=== PATIENT | female | born 1950 | race Caucasian/White ===

== ENCOUNTER 2018-05-02 08:26 | Inpatient (IN) | payer MEDICARE, OTHER ==
[~2018-05-02] VITALS: Ht 167.6 cm; Wt 65.8 kg
[~2018-05-02 08:26] MED LIST: ADVAIR HFA115 MCG/21 INH; CEFPODOXIME PR200 M1 PO; CIPRO500 MG PO; COMBIVENT INH; FLAGYL500 MG PO; FLONASE 0.05%50 MCG NASAL; LIPITOR 20 MG T20 M1 PO; PAXIL30 MG PO; PREDNISONE 10 M10 MG PO; PROAIR HFA8.5 GM INH; PROTONIX40 M1 PO; VENTOLIN HFA 1818 GM INH
[2018-05-02 08:37] VITALS: BP 154/70
[2018-05-02 08:55] LABS: HEMATOCRIT 47.7 % (37.0-47.0); MCH 31.1 pg (26.0-34.0); MCHC 33.4 g/dL (28.0-37.0); MCV 93.2 fL (80.0-100.0); MPV 9.1 fl. (7.2-11.1); NUCLEATED RBCS 0 /100WBC; PLATELET COUNT* 181 thou/uL (150-400); RBC 5.13 mil/uL (4.20-5.00); RDW-CV 12.9 % (10.5-14.5); WBC 6.9 thou/uL (4.0-11.0)
[2018-05-02 09:09] LABS: ANION GAP 4 mmol/L (7-16); APTT 28.4 Seconds (25.0-31.3); BUN 11 mg/dL (7-18); CALCIUM 8.6 mg/dL (8.5-10.1); CHLORIDE 102 mmol/L (98-107); CO2 37 mmol/L (21-32); CREATININE 0.8 mg/dL (0.6-1.3); GLUCOSE 95 mg/dL (70-99); INR 1.1; POTASSIUM 3.7 mmol/L (3.5-5.1); PROTIME 10.8 Seconds (9.20-11.50); SODIUM 143 mmol/L (136-145)
[2018-05-02 09:19] LABS: ALBUMIN 3.7 g/dL (3.4-5.0); ALKALINE PHOSPHATASE 82 U/L (46-116); LIPASE 176 U/L (73-393); MAGNESIUM 1.9 mg/dL (1.8-2.4); NT-PRO BRAIN NAT PEPTIDE 48 pg/mL (<300); SGOT 24 U/L (15-37); SGPT 24 U/L (30-65); TOTAL BILIRUBIN 0.5 mg/dL (<0.1-1.0); TROPONIN-I LEVEL <0.06 ng/mL (<0.06)
[2018-05-02 09:34] LABS: ABSOLUTE EOSINOPHILS 0.8 thou/uL (0.0-0.7); ABSOLUTE LYMPHOCYTES 2.6 thou/uL (0.8-5.3); ABSOLUTE MONOCYTES 0.3 thou/uL (0.0-1.2); ABSOLUTE NEUTROPHILS 3.2 thou/uL (1.6-8.1); ATYPICAL LYMPHS 1 %; PLATELET ESTIMATE ADEQUATE
[2018-05-02 11:55] VITALS: BP 130/72
[2018-05-02 12:00] VITALS: BP 134/83
--- NOTE | 2018-05-02 13:15 | NUR ---
RECEIVED REPORT FROM MAGALIS IN ED AND ASSUMED CARE OF PT @ 1200.PT IS A/O X4,VSS,TRACING SR WITH PVC ON THE MONITOR.ASSESSMENT CHARTED.IV PATENT AND SALINE LOCKED.PT IS CALM AND COOPERATIVE WITH NO C/O PAIN AT TIME OF ASSESSMENT.PT IS UP AD MADHAVI IN ROOM.PT LEFT RESTING IN BED WITH CALL LIGHT WITHIN REACH.WILL CONTINUE TO MONITOR.
[2018-05-02 16:03] VITALS: BP 131/75
--- NOTE | 2018-05-02 18:07 | NUR ---
VSS.CARDIAC MONITORING IN PLACE WITH NO CHANGES.PT REMAINS ON 5L O2 NC.NO C/O PAIN.IV PATENT AND SALINE LOCKED.IV ANTIBIOTICS GIVEN.UA SENT.SPUTUM SAMPLE SENT.HOURLY ROUNDING COMPLETED FOR PT SAFETY.CALL LIGHT WITHIN REACH.WILL CONTINUE TO MONITOR FOR DURATION OF SHIFT.
[2018-05-02 19:00] VITALS: BP 121/65
[2018-05-03] VITALS: BP 137/80
--- NOTE | 2018-05-03 01:20 | NUR ---
INITIAL ASSESSMENT COMPLETE. PT DOES REPORT PRODUCTIVE COUGH. PT REMAINS ON 5LPM. PT UP ADLIB WITH STEADY GAIT. VSS. PT TRACING SR ON MONITOR. REFER TO CHARTING. CLWR
[2018-05-03 04:00] VITALS: BP 134/80
--- NOTE | 2018-05-03 06:54 | NUR ---
PT SLEPT ALL T/O THIS SHIFT. NO NEW COMPLAINTS OTR CONCERNS AT THIS TIME. CLWR.
[2018-05-03 07:50] VITALS: BP 114/74
--- NOTE | 2018-05-03 10:27 | NUR ---
RECEIVED REPORT FROM CONCEPCIÓN AND ASSUMED CARE OF PT @ 5760.PT IS A/O X4,VSS,TRACING SR ON THE MONITOR.ASSESSMENT CHARTED.PT REMAINS ON 5L O2 NC.IV PATENT AND SLAINE LOCKED.IV ANTIBIOTICS GIVEN.PT IS CALM AND COOPERAITVE WITH NO C/O PAIN.PT LEFT RESTING IN BED WITH CALL LIGHT WITHIN REACH.WILL CONTINUE TO MONITOR.
[2018-05-03 11:42] VITALS: BP 121/65
--- NOTE | 2018-05-03 12:58 | EKG ---
[place] [address] ELECTROCARDIOGRAM REPORT Name: CHOCO MAGDALENO Room: [address] ADM IN .R.#: [id number] Admission: 05/02/18 Attend Phys: Nataly Valles Discharge: Date of : 52 Report #: [id number] THIS REPORT FOR: //name// [facility] ED Test Date: 2018-05-02 Test Time: 08:54:10 Pat Name: CHOCO MAGDALENO Department: Room: [facility] Gender: F Lead Programmer Analyst: AG : 1950 Requested By: Bartolo Rowland Order Number: [id number] MD: Jamir Sol Measurements Intervals [place] Rate: 69 P: 46 SC: 166 QRS: 56 QRSD: 76 T: 55 QT: 388 QTc: 416 Interpretive Statements Sinus rhythm Compared to ECG 02/24/2017 15:10:41 T-wave abnormality no longer present Electronically Signed On 05-03-2018 12:58:05 VICE CHAIRMAN by Jamir Sol [email or web address] <ELECTRONICALLY SIGNED> By: Jamir Sol MD, [facility] 05/03/18 1258 0854 0854 Jamir Sol MD, [facility] /EPI
[2018-05-03 16:06] VITALS: BP 125/71
--- NOTE | 2018-05-03 17:20 | NUR ---
VSS.CARDIAC MONITORING IN PLACE WITH NO CHANGES.PT REMAINS ON 5L O2 NC.PT PROGRESSING TOWARDS GOALS.NO C/O PAIN.IV PATENT AND SALINE LOCKED.IV ANTIBIOTICS GIVEN.PT INFORMED OF PLAN OF CARE AND COMMUNICATES UNDERSTANDING.HOURLY ROUNDING COMPELTED FOR PT SAFETY.CALL LIGHT WITHIN REACH.WILL CONTINUE TO MONITOR FOR DURATION OF SHIFT.
[2018-05-03 20:00] VITALS: BP 122/76
[2018-05-04] VITALS: BP 110/64
[2018-05-04 04:00] VITALS: BP 118/59
[2018-05-04 04:49] LABS: HEMATOCRIT 41.8 % (37.0-47.0); MCH 30.1 pg (26.0-34.0); MCHC 32.6 g/dL (28.0-37.0); MCV 92.5 fL (80.0-100.0); MPV 9.3 fl. (7.2-11.1); RBC 4.52 mil/uL (4.20-5.00); WBC 12.3 thou/uL (4.0-11.0)
[2018-05-04 05:08] LABS: CALCIUM 8.9 mg/dL (8.5-10.1); CREATININE 0.7 mg/dL (0.6-1.3); MAGNESIUM 2.1 mg/dL (1.8-2.4); POTASSIUM 4.3 mmol/L (3.5-5.1)
[2018-05-04 05:23] LABS: HEMOGLOBIN 13.6 gm/dL (12.0-15.0)
--- NOTE | 2018-05-04 05:58 | NUR ---
ASSUMED RT CARE @ 1930. A+O X 4. SR ON THE MONITOR. CHLORASCEPTIC LOZENGES ORDERED AND GIVEN FOR SORE THROAT EFFECTIVE. PT RESTED THROUGH NIGHT WITH NO OTHER DISCOMFORTS NOTED OR REPORTED. CALL LIGHT IN REACH. HOURLY ROUNDING FOR SAFETY.
[2018-05-04 08:15] VITALS: BP 141/66
--- NOTE | 2018-05-04 11:20 | NUR ---
MET WITH PT TO DISCUSS HOME SITUATION/DC PLANNING. PT LIVES ALONE, HAS SUPPORTIVE FRIENDS AND NEIGHBORS. SISTER LIVES IN [place]. PT USES HOME O2 AND HAS PORTABLE CONCENTRATOR ALSO THRU [facility]. SHE HASN'T HAD HH. GAVE INFO AND EDUCATION ON DPOA, PT WILL CONTACT CM IF WANTS TO COMPLETE. PT DENIES ANY DC NEEDS, STATES SHE HAS 'LOTS' OF SUPPORT. CM TO FOLLOW
[2018-05-04 12:00] VITALS: BP 136/73
[2018-05-04 16:00] VITALS: BP 127/69
[2018-05-04 19:00] VITALS: BP 136/76
--- NOTE | 2018-05-04 19:02 | NUR ---
ASSUMED PT CARE AT 0730, FULL ASSESMENT DONE CHARTED. PT A/O X4, DENIES PAIN. PT UP AD MADHAVI. WHEEZY, NON PRODUCTIVE COUGH. ON SAT 92% ON 4L. PT USES CALL LIGHT FOR NEEDS. WILL CONTINUE WITH PLAN OF CARE.
--- NOTE | 2018-05-04 21:35 | NUR ---
ASSUMED CARE OF PT AT 1900. PT DENIES PAIN, SOA,N/V/D. PT TRACING SR ON MONITOR. PT DENIES ANY FURTHER NEEDS AT THIS TIME. HOURLY ROUNDS FOR PT SAFETY. CLWR.
[2018-05-05] VITALS: BP 116/67
[2018-05-05 04:00] VITALS: BP 134/74
[2018-05-05 05:26] LABS: CREATININE 0.7 mg/dL (0.6-1.3); MAGNESIUM 2.3 mg/dL (1.8-2.4)
--- NOTE | 2018-05-05 05:28 | NUR ---
PT SLEPT WELL T/O THIS NIGHT. NO NEW COMPLAINTS OR CONCERNS. CLWR.
[2018-05-05 08:00] VITALS: BP 126/66
[2018-05-05] MEDS ORDERED: BENZONATATE100 MG PO (08:43)
[2018-05-05] MEDS ORDERED: WELLBUTRIN 75 M75 M1 PO (08:43)
[2018-05-05] MEDS ORDERED: CEFDINIR300 MG PO (08:43)
[2018-05-05] MEDS ORDERED: SINGULAIR 10 MG10 M1 PO (08:43)
[2018-05-05] MEDS ORDERED: PREDNISONE 10 M10 M1 PO (08:43)
[2018-05-05] MEDS ORDERED: AZITHROMYCIN 2250 MG PO (08:43)
[2018-05-05] MEDS ORDERED: MUCINEX600 MG PO (08:43)
[2018-05-05 11:39] VITALS: BP 126/66
--- NOTE | 2018-05-05 14:41 | NUR ---
ASSUMED CARE OF PT ASSESSED AND DOCUMENTED. PT D/C'D TO HOME. EDUCATION GIVEN RE FOLLOW-UPS, MEDICATIONS, AND DRS ORDERS. SCRIPTS GIVEN. IV AND CARDIAC MONITER D/C'D. ALL BELONGINGS PACKED UP AND LEFT WITH PT ACCOMPANIED BY STAFF AND FRIEND.
== END 2018-05-05 14:51 | disposition home or self-care (01) | DRG 193 ==
LOC: M.ERS 08:26 → M.2W 09:13 → M.TBA-ER 09:13 → M.2W 12:02
PROVIDERS: Family Medicine; Internal Medicine; ADMIT Internal Medicine
DX: J15.9 Unspecified bacterial pneumonia (principal); J96.21 Acute and chronic respiratory failure with hypoxia; J44.1 Chronic obstructive pulmonary disease with (acute) exacerbation; J44.0 Chronic obstructive pulmonary disease with (acute) lower respiratory infection; R65.10 Systemic inflammatory response syndrome (SIRS) of non-infectious origin without acute organ dysfunction; F17.210 Nicotine dependence, cigarettes, uncomplicated; F32.9 Major depressive disorder, single episode, unspecified; Z99.81 Dependence on supplemental oxygen; Z82.49 Family history of ischemic heart disease and other diseases of the circulatory system; Z84.1 Family history of disorders of kidney and ureter

== ENCOUNTER → 2018-12-02 | Day surgery (SDC) | payer MEDICARE, OTHER ==
[~2018-12-02] MED LIST changes: +ACCUNEB SO1.25 MG/1 INH; +ADVAIR 250-501 EACH INH; +AZITHROMYCIN 2250 MG PO; +BENZONATATE100 MG PO; +CEFDINIR300 MG PO; +COLACE100 MG PO; -COMBIVENT INH; +COMBIVENT RESPIM4 GM INH; +MUCINEX600 MG PO; +PREDNISONE 10 M10 M1 PO; -PROAIR HFA8.5 GM INH; +SINGULAIR 10 MG10 M1 PO; +WELLBUTRIN 75 M75 M1 PO
[2018-12-02 09:56] LABS: HEMATOCRIT 46.4 % (37.0-47.0); HEMOGLOBIN 15.4 gm/dL (12.0-15.0); MCH 30.6 pg (26.0-34.0); MCHC 33.2 g/dL (28.0-37.0); MCV 92.1 fL (80.0-100.0); MPV 8.6 fl. (7.2-11.1); RBC 5.04 mil/uL (4.20-5.00); WBC 6.9 thou/uL (4.0-11.0)
[2018-12-02 10:06] LABS: CALCIUM 9.2 mg/dL (8.5-10.1); CREATININE 0.7 mg/dL (0.6-1.3)
--- NOTE | 2018-12-02 17:20 | EKG ---
[place] [address] ELECTROCARDIOGRAM REPORT Name: CHOCO MAGDALENO Room: [facility]#: [id number] Admission: 12/02/18 Attend Phys: Jeff Quezada MD Discharge: Date of : 52 Report #: [id number] THIS REPORT FOR: //name// [facility] Test Date: 2018-12-02 Test Time: 09:56:59 Pat Name: CHOCO MAGDALENO Department: Room: Gender: F Steam Cleaner: : 1950 Requested By: Jeff Quezada Order Number: [id number] Reading MD: Malachi Conway Measurements Intervals [place] Rate: 72 P: 70 AL: 174 QRS: 21 QRSD: 72 T: 57 QT: 410 QTc: 449 Interpretive Statements Sinus rhythm Anterior infarct, old possible Compared to ECG 05/02/2018 08:54:10 Myocardial infarct finding now present Electronically Signed On 12-02-2018 17:19:50 CDT by Malachi Conway [email or web address] <ELECTRONICALLY SIGNED> By: Malachi Conway MD, [facility] 12/02/18 1719 0956 0956 Malachi Conway MD, FAC /EPI
== END | disposition home or self-care (01) ==
LOC: M.SUR 09:32
PROVIDERS: Internal Medicine Gastroenterology
DX: R13.10 Dysphagia, unspecified (principal); K44.9 Diaphragmatic hernia without obstruction or gangrene; F32.9 Major depressive disorder, single episode, unspecified; Z79.899 Other long term (current) drug therapy; Z98.890 Other specified postprocedural states; Z87.19 Personal history of other diseases of the digestive system

== ENCOUNTER → 2020-09-01 | Day surgery (SDC) | payer MEDICARE, OTHER ==
[~2020-09-01] MED LIST changes: +AUGMENTIN 875-1 EACH PO; +BUPROPION HCL150 MG PO; +CLARITIN-D 121 EAC1 PO; +METRONIDAZOLE500 M4 PO; +ROXICODONE5 MG PO
--- NOTE | ~2020-09-01 | PROC ---
[facility] [address] [place] [address] PROCEDURE REPORT Name: CHOCO MAGDALENO Room: [facility]#: [id number] Admission: 09/01/20 Attend Phys: Tong Dickens DO Discharge: Date of : 52 Report #: [id number] THIS REPORT FOR: cc: Katie Villalta Linda J. DO [facility],Medical Records Staff ~ For GI report, please see the Provation report in Perceptive 7 content. By: 1100Medical Records Staff ALEJANDRO /YOVANI
[2020-09-01 10:01] LABS: HEMATOCRIT 46.9 % (37.0-47.0); HEMOGLOBIN 15.5 gm/dL (12.0-15.0); MCV 90.8 fL (80.0-100.0); MPV 8.1 fl. (7.2-11.1); RBC 5.17 mil/uL (4.20-5.00); RDW-CV 13.2 % (10.5-14.5); WBC 6.8 thou/uL (4.0-11.0)
[2020-09-01 10:12] LABS: CALCIUM 8.8 mg/dL (8.5-10.1); CREATININE 0.8 mg/dL (0.6-1.3); POTASSIUM 3.4 mmol/L (3.5-5.1)
--- NOTE | 2020-09-01 11:21 | EKG ---
[place] [address] ELECTROCARDIOGRAM REPORT Name: BISHOPCHOCO R Room: [facility]#: [id number] Admission: 09/01/20 Attend Phys: Tong Dickens, Discharge: Date of : 52 Date of Service: 09/01/20 0935 Report #: [id number] THIS REPORT FOR: //name// [facility] Test Date: 2020-09-01 Test Time: 09:35:25 Pat Name: CHOCO MAGDALENO Department: Room: Gender: F Roll Inspector: : 1950 Requested By: Tong Dickens Order Number: [id number] Yolande MD: Scott Phelps Measurements Intervals [place] Rate: 76 P: 71 DC: 174 QRS: 38 QRSD: 80 T: 38 QT: 402 QTc: 453 Interpretive Statements Sinus rhythm poor r wave progression Compared to ECG 12/02/2018 09:56:59 no change Electronically Signed On 09-01-2020 11:21:07 CDT by Scott Phelps [email or web address] <ELECTRONICALLY SIGNED> By: Scott Phelps MD, [facility] 09/01/20 1121 0935 0935 Scott Phelps MD, [facility] /EPI
--- NOTE | 2020-09-05 17:06 | PATH ---
[facility] [address] [place] [address] PATHOLOGY RPT PROCEDURE Name: CHOCO MAGDALENO Room: [facility]#: [id number] Admission: 09/01/20 Date of : 52 Discharge: Report #: [id number] Path Case #: [id number] [facility] Accession Number: [id number] . 01 Material submitted: . PART A: colon - PROXIMAL TRANSVERSE POLYP HOT SNARE. Modifiers: proximal, transverse PART B: colon - DISTAL TRANSVERSE POLYP HOT SNARE. Modifiers: distal, transverse PART C: sigmoid colon - SIGMOID COLON POLYP-HOT SNARE . 01 Clinical history: . EGD AND COLONOSCOPY PER HISTORY COLON POLYPS, DYSPHAGIA . 02 Diagnosis: A. Proximal transverse polyp (hot snare): - Tubular adenoma, negative for high-grade dysplasia. . B. Distal transverse polyp (hot snare): - Hyperplastic polyp. . C. Sigmoid colon polyp (hot snare): - Hyperplastic polyp. (ANGELA:lowell; 09/05/2020) QMS 09/05/2020 1235 Local . 02 Electronically signed: . Donovan Smith MD, Pathologist NPI- [id number] . 01 Gross description: . A. Received in formalin labeled "Choco Magdaleno, proximal transverse polyp" is a fragment of casanova-brown soft tissue measuring 0.8 x 0.7 x 0.7 cm. The margin is inked and the specimen is bisected and submitted entirely in A1. . B. Received in formalin labeled "Choco Magdaleno, distal transverse polyp" is a fragment of casanova-brown soft tissue measuring 0.3 x 0.3 x 0.2 cm. The margin is inked and the specimen is submitted entirely in B1. . C. Received in formalin labeled "Choco Magdaleno, sigmoid colon polyp" is a fragment of casanova-brown soft tissue measuring 0.3 x 0.3 x 0.2 cm. The margin is inked and the specimen is submitted entirely in C1. ([facility] [place]; 09/03/2020) [facility] 09/03/2020 0941 Local . 02 Pathologist provided ICD-10: [place] [address] PATHOLOGY RPT PROCEDURE Name: CHOCO MAGDALENO Room: [facility]#: [id number] Admission: 09/01/20 Date of : 52 Discharge: Report #: [id number] Path Case #: [id number] D12.3, K63.5 . 02 CPT . [id number], [id number], [id number] Specimen Comment: A courtesy copy of this report has been sent to [phone] Specimen Comment: [phone] Specimen Comment: Report sent to / DR HAYNES Performed at: [address] [facility] [address], [place], [place] [id number] MD Parmjit Nelson MD Phone: [phone] Performed at: 02 [facility] [address], [place], [place] [id number] MD Donovan Smith MD Phone: [phone]
== END | disposition home or self-care (01) ==
LOC: M.SUR 08:04
PROVIDERS: ATTEND Internal Medicine Gastroenterology
DX: Z12.11 Encounter for screening for malignant neoplasm of colon (principal); Z86.010 Personal history of colon polyps; D12.3 Benign neoplasm of transverse colon; K57.30 Diverticulosis of large intestine without perforation or abscess without bleeding; K64.4 Residual hemorrhoidal skin tags; J44.9 Chronic obstructive pulmonary disease, unspecified; R13.14 Dysphagia, pharyngoesophageal phase; F17.210 Nicotine dependence, cigarettes, uncomplicated; Z98.890 Other specified postprocedural states; Z79.899 Other long term (current) drug therapy

== ENCOUNTER 2020-09-04 11:39 | Inpatient (IN) | payer MEDICARE, OTHER ==
[~2020-09-04] VITALS: Ht 167.6 cm; Wt 73.9 kg
--- NOTE | ~2020-09-04 | OP ---
[address] [address] OPERATIVE REPORT Name: CHOCO MAGDALENO Room: [address] IN M.R.#: [id number] Admission: 09/04/20 Attend Phys: Melba Corey MD Discharge: Date of : 52 Report #: [id number] THIS REPORT FOR: cc: Katie Villalta Linda J. DO Kramer, Adam P. DO ~ DICTATED BY: Chloé Gomez DO DATE OF SERVICE: 09/04/2020 Chloé Gomez DO, PGY3 dictating for Kieran Sanchez DO. PRIMARY CARE PHYSICIAN: Dr. Katie Villalta. PREOPERATIVE DIAGNOSIS: Acute appendicitis. POSTOPERATIVE DIAGNOSIS: Acute perforated appendicitis. PRIMARY SURGEON: Kieran Sanchez DO COLLECTION SYSTEMS CONSULTANT: Chloé Gomez DO, PGY3. PROCEDURE PERFORMED: Laparoscopic appendectomy. ANESTHESIA: General and local. ESTIMATED BLOOD LOSS: 20 mL. SPECIMEN: Appendix. INDICATIONS FOR PROCEDURE: The patient is a pleasant 69-year-old female that presented to the Emergency Department with worsening right lower abdominal pain as well as lower back pain. She did have some associated nausea and vomiting. Her symptoms started yesterday and had gotten worse since that time. Of note, she did just have an EGD and colonoscopy on Friday with Dr. Dickens and he had removed some polyps from the transverse and sigmoid colon. She had a CT scan in the Emergency Department, which was consistent with acute appendicitis. She had a leukocytosis. It was recommended that she undergo laparoscopic appendectomy. The procedure, risks, benefits, possible complications to include bleeding, infection, injury to surrounding structures, need for additional surgery, need for open procedure, risks of anesthesia, and other risks of surgery were discussed with the patient in great detail. She voiced complete understanding and wished to proceed with surgery. DESCRIPTION OF PROCEDURE: Informed consent was obtained. [place] [address] OPERATIVE REPORT Name: MAGDALENOARACELISCHOCO Sunny Room: [address] IN [facility]#: [id number] Admission: 09/04/20 Attend Phys: Melba Corey MD Discharge: Date of : 52 Report #: [id number] to the operating room and placed supine on the operating room table. General endotracheal anesthesia was induced without difficulty. SCDs were placed on bilateral lower extremities. Preoperative antibiotics were given. The abdomen was prepped and draped in the standard sterile fashion. Timeout was performed to ensure correct patient and procedure. A vertical supraumbilical 3 cm incision was made using a #11 blade scalpel and the incision was carried down through the subcutaneous tissues using electrocautery. [place] were used to assist in the dissection further down to the level of the fascia. Fascia was scored with electrocautery. Fascia was grasped between 2 Kochers and elevated. Peritoneum was entered bluntly using a hemostat, 0 Vicryl stay sutures were placed on either side of the fascial opening in a hnlqnu-hb-hpxjm fashion. The 5 mm Ariane trocar was inserted and the abdomen was insufflated without difficulty. A sweep of the anterior abdominal contents was performed. There did appear to be some inflammatory purulent fluid in the right lower quadrant. The patient was placed in the Trendelenburg position. A suprapubic 5 mm trocar was inserted under direct visualization. A blunt grasper was then used to explore the right lower quadrant. The appendix was found coursing just lateral to the terminal ileum down into the pelvis. It did appear to be acutely inflamed. A 12 mm left lower quadrant trocar was inserted under direct visualization. The base of the appendix was identified and grasped and elevated, it appeared to be healthy. [place] dissector was used to dissect a window through the mesoappendix just at the base of the appendix. A 45 mm purple load on the Endo-MONA stapler was used to come across the base of the appendix. The Harmonic scalpel was then used to come across the mesoappendix. Once the appendix was freed from all of its attachments, it was placed within an EndoCatch bag. The right lower quadrant was then irrigated using the suction technical services assistant. Our staple line and the mesoappendix were reinspected, they appeared to be hemostatic. Right lower quadrant was again irrigated using the suction technical services assistant. The patient was flattened out. The suprapubic and left lower quadrant trocars were removed under direct visualization and the abdomen was desufflated without difficulty. The 5 mm Ariane was removed as well as the appendix within the EndoCatch bag. The previously placed stay sutures were grasped and elevated. The remainder of the fascia was reapproximated using 0 Vicryl suture in a caudao-di-xzrwv fashion. Previously placed stay sutures were tied down. The skin was closed using 4-0 Monocryl suture in a running subcuticular fashion. The 5 mm and 12 mm trocar sites were closed using 4-0 Monocryl suture in a simple interrupted and inverted fashion. Approximately 30 mL of 0.5% Marcaine were used for local anesthesia. Abdomen was cleansed and dried. Dermabond was applied to each incision. The patient tolerated the procedure very well. She was allowed to awaken in the operating room and was [place] [id number] OPERATIVE REPORT Name: CHOCO MAGDALENO Room: [address] IN .R.#: [id number] Admission: 09/04/20 Attend Phys: Melba Coery MD Discharge: Date of : 52 Report #: [id number] transferred to the PACU in stable condition with plans to return to the floor for ongoing IV antibiotics and continued care. By: 08 oJan Sanchez DO /celia
[~2020-09-04 11:39] MED LIST changes: -AUGMENTIN 875-1 EACH PO; -METRONIDAZOLE500 M4 PO; -ROXICODONE5 MG PO
[2020-09-04 11:55] VITALS: BP 155/86
[2020-09-04 13:57] LABS: ABSOLUTE BASOPHILS 0.1 thou/uL (0.0-0.2); ABSOLUTE LYMPHOCYTES 1.6 thou/uL (0.8-5.3); ABSOLUTE MONOCYTES 1.3 thou/uL (0.0-1.2); ABSOLUTE NEUTROPHILS 14.1 thou/uL (1.6-8.1); BASOPHILS 0.7 %; EOSINOPHILS 0.1 %; HEMATOCRIT 46.2 % (37.0-47.0); HEMOGLOBIN 15.3 gm/dL (12.0-15.0); LYMPHOCYTES 9.5 %; MCHC 33.1 g/dL (28.0-37.0); MCV 90.5 fL (80.0-100.0); MONOCYTES 7.4 %; MPV 8.1 fl. (7.2-11.1); NUCLEATED RBCS 0 /100WBC; PLATELET COUNT* 238 thou/uL (150-400); POLYS 82.3 %; RDW-CV 13.4 % (10.5-14.5); WBC 17.1 thou/uL (4.0-11.0)
[2020-09-04 14:06] LABS: CALCIUM 8.9 mg/dL (8.5-10.1); CREATININE 0.7 mg/dL (0.6-1.3); POTASSIUM 3.4 mmol/L (3.5-5.1)
[2020-09-04 14:18] LABS: ALBUMIN 3.9 g/dL (3.4-5.0); TOTAL BILIRUBIN 0.7 mg/dL (<0.1-1.0); TOTAL PROTEIN 7.3 g/dL (6.4-8.2)
[2020-09-04 15:19] LABS: URINE BILIRUBIN NEGATIVE (Negative); URINE BLOOD 1+ (Negative); URINE CLARITY CLEAR; URINE COLOR YELLOW; URINE GLUCOSE-RANDOM NEGATIVE (Negative); URINE KETONES 1+ (Negative); URINE LEUKOCYTES-REFLEX NEGATIVE (Negative); URINE NITRITE-REFLEX NEGATIVE (Negative); URINE PROTEIN NEGATIVE (Negative); URINE SPECIFIC GRAVITY 1.025 (1.005-1.030); URINE UROBILINOGEN 0.2 E.U./dl (0.2-1.0)
[2020-09-04 15:34] LABS: BACTERIA-REFLEX 1-9 Few /HPF (None Seen); CASTS None Seen /LPF (None Seen); CRYSTALS None Seen /LPF (None Seen); SQUAMOUS 0-3 Few /LPF (0-3); URINE RBC 0-2 Rare /HPF (0-2); URINE WBC-REFLEX 0-5 Rare /HPF (0-5)
[2020-09-04 18:13] VITALS: BP 157/73
[2020-09-04 21:12] VITALS: BP 130/72
[2020-09-05 00:16] VITALS: BP 124/73
[2020-09-05 04:36] VITALS: BP 110/62
[2020-09-05 05:16] LABS: HEMATOCRIT 42.4 % (37.0-47.0); HEMOGLOBIN 13.7 gm/dL (12.0-15.0); MCH 29.7 pg (26.0-34.0); MCHC 32.4 g/dL (28.0-37.0); MCV 91.5 fL (80.0-100.0); MPV 8.2 fl. (7.2-11.1); RBC 4.63 mil/uL (4.20-5.00); RDW-CV 13.1 % (10.5-14.5); WBC 22.5 thou/uL (4.0-11.0)
[2020-09-05 05:29] LABS: ALBUMIN 3.2 g/dL (3.4-5.0); CALCIUM 8.7 mg/dL (8.5-10.1); CREATININE 0.7 mg/dL (0.6-1.3); MAGNESIUM 1.9 mg/dL (1.8-2.4); POTASSIUM 3.7 mmol/L (3.5-5.1); TOTAL BILIRUBIN 0.6 mg/dL (<0.1-1.0); TOTAL PROTEIN 6.5 g/dL (6.4-8.2)
[2020-09-05 08:25] VITALS: BP 112/64
--- NOTE | 2020-09-05 08:39 | NUR ---
PATIENT BROUGHT TO UNIT AT APPROXIMATELY 2100 FROM PACU. REPORT GIVEN FROM PACU NURSE. VSS ON 4L 02 VIA NASAL CANNULA. ADMISSION ASSESSMENT CHARTED. PATIENTS HAS HAD NO C/O PAIN. LAP SITES TO ABDOMEN ARE WELL APPROXIMATED AND SUPERVISOR TOWER WITH NO DRAINAGE NOTED. PATIENT URINATING ADEQUATELY SINCE SURGERY. IV IN RIGHT AC-SL. IV ABT'S GIVEN WITHOUT ANY ADVERSE SIDE EFFECCTS NOTED. LUNG SOUND DIMINISHED. PATIENT HAS HISTORY OF BEING CURRENT SMOKER AND HISTORY OF COPD. PATIENT EDUCATED ON USING INCENTIVE SPIROMETER. PATIENT INSTRUCTED TO USE CALL LIGHT WHEN NEEDING ASSISTANCE. HOURLY ROUNDS MADE. WILL CONTINUE WITH PLAN OF CARE AND NURSING TO MONITOR.
--- NOTE | 2020-09-05 10:54 | NUR ---
Nutrition: Pt admitted with appendicitis, appy performed. Tolerating CLD, so advanced to regular diet. Wt hx: usual wt was 155#, then she lost wt to 146# in 2017, now wt is recorded as 163#. Albumin 3.2. H/o smoker, COPD. Hopeful for continued good po intake today, good HBV protein intake. Consider low nutrition risk.
[2020-09-05] MEDS ORDERED: METRONIDAZOLE500 M4 PO (11:36)
[2020-09-05] MEDS ORDERED: AUGMENTIN 875-1 EACH PO (11:36)
[2020-09-05 11:37] VITALS: BP 94/52
--- NOTE | 2020-09-05 15:07 | NUR ---
Pt is A&O. Resides at home alone. Independent. Pt [facility] Pt states that she has an [employer], sister will bring it in at discharge. No hx of HH or SNF. Pt states that [place] [facility] [place], [facility] and arrange [facility] up at dc. Anticipate dc in a few days.
--- NOTE | 2020-09-05 16:05 | NUR ---
[facility] Nurse Transition Navigator Bedside Note: Met with patients. She wants HH due to her comobidities and use of oxygen and heart issues. Patient to dc tomorrow and we called and made appt. with pcp, Dr. Katie Ayala at 9 am on September 14.
[2020-09-05 16:55] VITALS: BP 108/63
[2020-09-05 20:12] VITALS: BP 122/74
--- NOTE | 2020-09-05 20:57 | NUR ---
Pt remained A&O x4 for entire shift. Pt pleasant with staff. Pt complained of being "extremely uncomfortable" when asked if she was in pain. Pt given meds per JUL. Vital signs stable. Bed in low postion, call light within reach.
[2020-09-06 00:14] VITALS: BP 112/63
[2020-09-06 04:10] VITALS: BP 111/66
--- NOTE | 2020-09-06 04:33 | NUR ---
PATIENT HAS REMAINED ALERT AND ORIENTED X 4 THROUGHOUT THE SHIFT AND RSTING QUIETLY ON HOURLY ROUNDS. MEDICATED FOR ABDOMINAL PAIN X 3 TO GOOD EFFECT. PATIENT DENIES PASSING GAS. ADEQUTE VOIDS. UP WITH CGA. IV ANTIBIOTICS/MEDS PER ORDERS. VITAL SIGNS STABLE. CONTINUE TO MONITOR.
[2020-09-06 05:01] LABS: ABSOLUTE BASOPHILS 0.1 thou/uL (0.0-0.2); ABSOLUTE LYMPHOCYTES 2.1 thou/uL (0.8-5.3); ABSOLUTE NEUTROPHILS 9.2 thou/uL (1.6-8.1); BASOPHILS 0.5 %; EOSINOPHILS 0.2 %; HEMOGLOBIN 12.4 gm/dL (12.0-15.0); LYMPHOCYTES 17.2 %; MCHC 32.7 g/dL (28.0-37.0); MCV 91.8 fL (80.0-100.0); MONOCYTES 7.8 %; MPV 8.5 fl. (7.2-11.1); NUCLEATED RBCS 0 /100WBC; PLATELET COUNT* 173 thou/uL (150-400); POLYS 74.3 %; RBC 4.14 mil/uL (4.20-5.00); RDW-CV 13.7 % (10.5-14.5); WBC 12.4 thou/uL (4.0-11.0)
[2020-09-06 05:11] LABS: CALCIUM 8.9 mg/dL (8.5-10.1); CREATININE 0.6 mg/dL (0.6-1.3); POTASSIUM 3.3 mmol/L (3.5-5.1)
[2020-09-06 08:00] VITALS: BP 147/70
--- NOTE | 2020-09-06 13:52 | NUR ---
Continue to monitor pain control. No passing gas but belching. Possible dc to home tomorrow, no needs anticipated.
--- NOTE | 2020-09-06 14:58 | NUR ---
[facility] Nurse Cora. Navigator f/u note: Should dc tomorrow. Still wants HH.
[2020-09-06 16:00] VITALS: BP 133/72
--- NOTE | 2020-09-06 18:26 | NUR ---
PT RESTING IN BED THROUGHOUT SHIFT. PAIN CONTROLLED WITH PO AND IV MEDS. TOLERATING PO WELL. UP TO BR WITH STEADY GAIT
[2020-09-07] VITALS: BP 138/77
[2020-09-07 04:32] VITALS: BP 156/80
[2020-09-07 04:36] LABS: HEMATOCRIT 39.1 % (37.0-47.0); HEMOGLOBIN 12.8 gm/dL (12.0-15.0); MCHC 32.8 g/dL (28.0-37.0); MCV 91.5 fL (80.0-100.0); MPV 8.4 fl. (7.2-11.1); RBC 4.28 mil/uL (4.20-5.00); RDW-CV 13.4 % (10.5-14.5)
[2020-09-07 04:45] LABS: CALCIUM 9.1 mg/dL (8.5-10.1); CREATININE 0.5 mg/dL (0.6-1.3); POTASSIUM 3.3 mmol/L (3.5-5.1)
[2020-09-07 08:00] VITALS: BP 134/69
--- NOTE | 2020-09-07 09:19 | NUR ---
PATIENT HAS SLEPT THROUGHOUT MOST OF THE NIGHT. PATIENT 0XYGEN INCREASED TO 3L 02 D/T DECREASED OXYGEN SATURATION. VSS. PATIENT UP AD-MADHAVI AND STEADY. LAP SITES TO ABDOMEN ARMIN WITH DERMABOND. MEDICATIONS GIVEN ORDERED AND CHARTED. NEW IV INSERTED IN LEFT FOREARM-SL. IV ABT'S GIVEN ORDERED WITHOUT ANY ADVERSE SIDE EFFECTS NOTED. PATIENT INSTRUCTED TO USE CALL LIGHT WHEN NEEDING ASSISTANCE. HOURLY ROUNDS MADE. WILL CONTINUE WITH PLAN OF CARE AND NURSING TO MONITOR.
[2020-09-07] MEDS ORDERED: ROXICODONE5 MG PO (09:37)
[2020-09-07 16:02] VITALS: BP 143/78
--- NOTE | 2020-09-07 17:06 | PATH ---
[address] [address] PATHOLOGY RPT PROCEDURE Name: CHOCO MAGDALENO Room: [address] IN .R.#: [id number] Admission: 09/04/20 Date of : 52 Discharge: Report #: [id number] Path Case #: [id number] [facility] Accession Number: [id number] . 01 Material submitted: . appendix - APPENDIX . 01 Clinical history: . LAPAROSCOPIC APPENDECTOMY . 01 Frozen section diagnosis: . . /QLM . 02 Diagnosis: Appendix: - Acute gangrenous appendicitis, periappendicitis and serositis with evidence of perforation. . (ANGELA:mml; 09/07/2020) QLM 09/07/2020 1609 Local . 02 Electronically signed: . Donovan Smith MD, Pathologist NPI- [id number] . 01 Gross description: . Fixative: Formalin Labeled: Appendix Appendix length: 7.0 cm Appendix diameter: Up to 1.1 cm Mesoappendix: 1.3 cm Proximal margin: Stapled Serosa: Whittemore-schneider and shaggy Cut surface: Patent to dilated lumen Luminal diameter: Up to 0.5 cm Perforation: Identified 3.7 cm from proximal margin, measuring 0.8 cm Lesions/abnormalities: None identified . Proximal margin and bisected tip in cassette A1. Additional arborist representative cross-sections in cassette A2. Entire area of perforation in cassette A3. (CAA; 09/06/2020) QAC/QAC 09/06/2020 1631 Local . 02 Pathologist provided ICD-10: K35.80, K65.8 . 02 [place] [address] PATHOLOGY RPT PROCEDURE Name: CHOCO MAGDALENO Room: [address] IN [facility]#: [id number] Admission: 09/04/20 Date of : 52 Discharge: Report #: [id number] Path Case #: [id number] Specimen Comment: A courtesy copy of this report has been sent to [phone] Specimen Comment: [phone], Specimen Comment: Report sent to ,DR HUI / DR HAYNES Performed at: 01 [facility] Vanna Chaves [address] [place] [address] [address], [place], [place] [id number] MD Parmjit Nelson MD Phone: [phone] Performed at: 02 [place] [address] [address], [place], [place] [id number] MD Donovan Smith MD Phone: [phone]
--- NOTE | 2020-09-07 18:21 | NUR ---
PT UP TO WALK THE WORKMAN AND HAD A VERY TINY BM. PT STATED SHE DOES NOT WANT TO GO HOME AND HAVE TO COME BACK FOR TTHE CONSTIPATION. PT HAS WALKED THE WORKMAN WAY 2 TIMES TODAY AND HAS EATEN VERY LITTLE TODAY. SALINE LOCK IN FEFT FOREARM VSS AFEBRILE. WILL CONTINUE TO MONITOR PLAN OF CARE.
[2020-09-07 18:45] VITALS: BP 143/78
--- NOTE | 2020-09-07 19:27 | NUR ---
PT DISCHARGED HOME WITH ALL BELONGINGS ACCOMPANIED BY FAMILY MEMBER. SALINE LOCK REMOVED HUB INTACT. PT UP AMBULATING IN THE HALLWAYS WITH STEADY GAIT. PT DENIES PAIN ON DISCHARGE.
--- NOTE | 2020-09-07 22:47 | NUR ---
PT LEFT THE UNIT VIA W/C ACCOMPANIED BY STAFF AND HER SISTER WITH ALL BELONGINGS AND PAPER WALK.
== END 2020-09-07 20:00 | disposition home or self-care (01) | DRG 853 ==
LOC: M.ERS 11:39 → M.TBA-ER 16:58 → M.ORTHSURG 16:58
PROVIDERS: Family Medicine; Nurse Practitioner Family; Surgery; ADMIT Internal Medicine; ATTEND Internal Medicine
PROC: 0DTJ4ZZ Resection of Appendix, Percutaneous Endoscopic Approach (ICD-10-PCS; principal; 2020-09-04)
DX: A41.9 Sepsis, unspecified organism (principal); J96.21 Acute and chronic respiratory failure with hypoxia; K35.32 Acute appendicitis with perforation, localized peritonitis, and gangrene, without abscess; J44.1 Chronic obstructive pulmonary disease with (acute) exacerbation; F32.9 Major depressive disorder, single episode, unspecified; F17.210 Nicotine dependence, cigarettes, uncomplicated; E87.6 Hypokalemia; Z20.822 Contact with and (suspected) exposure to COVID-19; Z79.899 Other long term (current) drug therapy

== ENCOUNTER → 2021-02-26 | Outpatient (CLI) | payer MEDICARE, OTHER ==
[~2021-02-26] MED LIST changes: +AUGMENTIN 875-1 EACH PO; +METRONIDAZOLE500 M4 PO; +ROXICODONE5 MG PO
== END ==
LOC: M.CT 11:00
PROVIDERS: ATTEND Nurse Practitioner
DX: J43.8 Other emphysema (principal); I31.3 Pericardial effusion (noninflammatory); I70.0 Atherosclerosis of aorta; I25.10 Atherosclerotic heart disease of native coronary artery without angina pectoris; M25.78 Osteophyte, vertebrae; J18.9 Pneumonia, unspecified organism; R91.8 Other nonspecific abnormal finding of lung field; F17.200 Nicotine dependence, unspecified, uncomplicated

== ENCOUNTER → 2021-03-02 | Outpatient (CLI) | payer MEDICARE, OTHER | LOC: M.LAB 14:09 | PROVIDERS: ATTEND Nurse Practitioner | DX: I77.89 Other specified disorders of arteries and arterioles (principal); J43.1 Panlobular emphysema; R06.02 Shortness of breath; I31.3 Pericardial effusion (noninflammatory) ==